=== PATIENT | male | born 1985 ===

== ENCOUNTER 2016-12-04 16:12 | Emergency (ER) | payer BC ==
--- NOTE | 2016-12-04 19:34 | UC ---
Throat Pain/Nasal Orlin HPI - HPI Summary HPI Summary: TWO DAYS OF SORE THROAT, EAR PRESSURE, CONGESTION. - History of Current Complaint Chief Complaint: UCGeneralIllness Stated Complaint: FLU SYMPTOMS Time Seen by Provider: 12/04/16 18:42 Hx Obtained From: Patient Onset/Duration: Sudden Onset, Lasting Days, Still Present Severity: Moderate Cough: Nonproductive Associated Signs & Symptoms: Positive: Sinus Discomfort, Nasal Discharge - Epiglottits Risk Factors Epiglottis Risk Factors: Negative - Allergies/Home Medications Allergies/Adverse Reactions: Allergies Allergy/AdvReac Type Severity Reaction Status Date / Time No Known Allergies Allergy Verified 12/04/16 17:32 Home Medications: Home Medications Dextromethorphan-Phenylephrine [Theraflu Expressmax Sever 10-5-325 mg] 2 tab PO Q4HR PRN 12/04/16 [History Confirmed 12/04/16] PMH/Surg Hx/FS Hx/Imm Hx Previously Healthy: Yes - Surgical History Surgical History: None - Family History Known Family History: Negative: Respiratory Disease - Social History Occupation: Employed Full-time Lives: With Family Alcohol Use: None Substance Use Type: None Smoking Status (MU): Never Smoked Tobacco - Immunization History Most Recent Influenza Vaccination: Not utd Review of Systems Constitutional: Negative Skin: Negative Eyes: Negative ENT: Sore Throat, Ear Ache Respiratory: Negative Cardiovascular: Negative Gastrointestinal: Negative Genitourinary: Negative Motor: Negative Neurovascular: Negative Musculoskeletal: Negative Neurological: Negative Psychological: Negative All Other Systems Reviewed And Are Negative: Yes Physical Exam Triage Information Reviewed: Yes Appearance: Ill-Appearing - MILDLY Vital Signs: Initial Vital Signs Temp 101.1 F 12/04/16 17:33 Pulse 94 12/04/16 17:33 Resp 18 12/04/16 17:33 BP 123/77 12/04/16 17:33 Pulse Ox 99 12/04/16 17:33 Eye Exam: Normal ENT: Positive: Hearing grossly normal, Nasal congestion, TM bulging, TM dull Neck exam: Normal Neck: Positive: Supple, Nontender, No Lymphadenopathy Respiratory Exam: Normal Respiratory: Positive: Chest non-tender, Lungs clear, Normal breath sounds, No respiratory distress, No accessory muscle use Cardiovascular Exam: Normal Cardiovascular: Positive: RRR, No Murmur, Pulses Normal Abdominal Exam: Normal Abdomen Description: Positive: Nontender, No Organomegaly Musculoskeletal Exam: Normal Musculoskeletal: Positive: Strength Intact, ROM Intact Neurological Exam: Normal Psychological Exam: Normal Skin Exam: Normal Throat Pain/Nasal Course/Dx - Differential Dx/Diagnosis Differential Diagnosis/HQI/PQRI: Sinusitis, Tonsillitis, URI Provider Diagnoses: UPPER RESPIRATORY INFECTION Discharge - Discharge Plan Condition: Stable Disposition: HOME Prescriptions: Fluticasone NASAL SPRAY 50MCG* [Flonase NASAL SPRAY 50MCG*] 2 spray BOTH NARES DAILY #1 btl Patient Education Materials: Upper Respiratory Infection (ED), Viral Syndrome ( ED) Forms: *Work Release Referrals: [facility] [Outside] Non Staff,Doctor [Primary Care Provider] -
== END 2016-12-04 19:30 | disposition home or self-care (01) ==
LOC: EDBD → UCEAST 16:12
DX: J06.9 Acute upper respiratory infection, unspecified (principal)
CPT/HCPCS: 87502; 87651; 99202; G0463